=== PATIENT | male | born 1950 | race Caucasian/White ===

== ENCOUNTER 2018-11-27 17:34 | Inpatient (IN) | payer MEDICARE, OTHER ==
[~2018-11-27] VITALS: Ht 177.8 cm; Wt 96.8 kg
[~2018-11-27 17:34] MED LIST: ACET325S PR; ACET500 PO; ALFU10; ASPI325 PO; ASPI81CH PO; ASPI81EC PO; AZAT50 PO; CARV6.25 PO; CIPR500 PO; COSENTYX P150 MG/11 SQ; DOCU100 PO; Dazidox10 MG PO; FISH OIL DR 1,1 EACH PO; HALO.05TC TOP; HCTZ PO; LISHYD2012 PO; LISI5 PO; METO25 PO; MORP15ER PO; MULVITMIND PO; NITR.6SL SL; OXYC10TA19 PO; OXYC1TAB11 PO; PRED10 PO; PRED20 PO; PRED5 PO; Prilosec Otc20 MG PO; SENNA; Zantac150 MG PO; [UNRECOGNIZED DRUG - OTHER]; [UNRECOGNIZED DRUG - OTHER] PO
[2018-11-27 18:21] LABS: Source, Urine Clean Catch
[2018-11-27 18:23] LABS: BASOPHILS ABSOLUTE AUTO 0.02 K/mm3 (0.00-0.23); BASOPHILS PERCENT AUTO 0 % (0-2); EOSINOPHILS ABSOLUTE AUTO 0.04 K/mm3 (0.00-0.68); EOSINOPHILS PERCENT AUTO 0 % (0-6); Hematocrit 46.1 % (37.0-53.0); Hemoglobin 15.4 g/dL (13.5-17.5); IMMATURE GRAN ABSOLUTE AUTO 0.04 K/mm3 (0.00-0.10); IMMATURE GRAN PERCENT AUTO 0 % (0-1); LYMPHOCYTES ABSOLUTE AUTO 0.52 K/mm3 (0.84-5.20); LYMPHOCYTES PERCENT AUTO 4 % (21-46); MONOCYTES ABSOLUTE AUTO 0.87 K/mm3 (0.16-1.47); MONOCYTES PERCENT AUTO 7 % (4-13); Mean Corpuscular HGB 31.3 pg (26.0-34.0); Mean Corpuscular HGB Conc 33.4 g/dL (31.5-36.5); Mean Corpuscular Volume 94 fL (80-100); Mean Platelet Volume 10.2 fL (9.1-12.4); NEUTROPHILS ABSOLUTE AUTO 11.14 K/mm3 (1.96-9.15); NEUTROPHILS PERCENT AUTO 88 % (41-73); Platelet Count 153 K/mm3 (150-400); RDW Coefficient Variation 12.7 % (11.7-14.2); RDW Standard Deviation 43.6 fL (35.1-46.3); Red Blood Cell Count 4.92 M/mm3 (4.30-5.90); White Blood Cell Count 12.63 K/mm3 (4.00-11.30)
[2018-11-27 18:24] LABS: Bilirubin, Urine Neg (Neg); Blood, Urine 2+ (Neg); Glucose Qualitative, Urine Neg (Neg); Ketones, Urine Neg (Neg); Leukocyte Esterase, Urine 1+ (Neg); Nitrite, Urine Neg (Neg); Protein, Urine Neg (Neg); Urobilinogen, Urine NORM (Normal)
[2018-11-27 18:47] LABS: Alanine Aminotransfer (ALT/SGP 26 U/L (12-78); Albumin, Blood 3.9 g/dL (3.4-5.0); Albumin/Globulin Ratio 1.3 (0.8-1.8); Alk Phos 75 U/L (50-136); Anion Gap 5 mmol/L (6-16); Aspartate Aminotrans (AST/SGOT 23 U/L (12-37); Bilirubin, Total 0.5 mg/dL (0.1-1.0); Blood Urea Nitrogen 16 mg/dL (8-24); CO2, Blood 29 mmol/L (21-32); Calcium, Blood 8.3 mg/dL (8.5-10.1); Chloride, Blood 106 mmol/L (98-108); Globulin, Blood 3.1 g/dL (2.2-4.0); Glomerular Filtration Rate >60 (60-); Glucose, Blood 92 mg/dL (70-99); Potassium, Blood 4.4 mmol/L (3.5-5.5); Sodium, Blood 140 mmol/L (136-145); Troponin I <0.015 ng/mL (0.000-0.040)
[2018-11-27 19:05] LABS: Appearance, Urine Clear (Clear); Color, Urine Yellow (P-Yellow)
[2018-11-27 19:06] LABS: Bacteria Rare /hpf; Squamous Epithelial Cells Rare /hpf (Few); White Blood Cells, Urine 0-2 /hpf (0-5)
[2018-11-27] MEDS ORDERED: Pravachol40 MG PO (21:58)
[2018-11-27] MEDS ORDERED: TUMS500 MG PO (22:24)
[2018-11-28 04:01] LABS: BASOPHILS ABSOLUTE AUTO 0.05 K/mm3 (0.00-0.23); BASOPHILS PERCENT AUTO 0 % (0-2); EOSINOPHILS ABSOLUTE AUTO 0.16 K/mm3 (0.00-0.68); EOSINOPHILS PERCENT AUTO 1 % (0-6); Hematocrit 42.1 % (37.0-53.0); IMMATURE GRAN ABSOLUTE AUTO 0.08 K/mm3 (0.00-0.10); IMMATURE GRAN PERCENT AUTO 1 % (0-1); LYMPHOCYTES ABSOLUTE AUTO 1.76 K/mm3 (0.84-5.20); LYMPHOCYTES PERCENT AUTO 11 % (21-46); MONOCYTES ABSOLUTE AUTO 1.03 K/mm3 (0.16-1.47); MONOCYTES PERCENT AUTO 7 % (4-13); Mean Corpuscular HGB Conc 33.3 g/dL (31.5-36.5); Mean Corpuscular Volume 93 fL (80-100); NEUTROPHILS ABSOLUTE AUTO 12.65 K/mm3 (1.96-9.15); NEUTROPHILS PERCENT AUTO 81 % (41-73); Platelet Count 155 K/mm3 (150-400); RDW Coefficient Variation 12.6 % (11.7-14.2); RDW Standard Deviation 43.2 fL (35.1-46.3); Red Blood Cell Count 4.51 M/mm3 (4.30-5.90); White Blood Cell Count 15.73 K/mm3 (4.00-11.30)
[2018-11-28 04:25] LABS: Alanine Aminotransfer (ALT/SGP 21 U/L (12-78); Albumin, Blood 3.2 g/dL (3.4-5.0); Albumin/Globulin Ratio 1.1 (0.8-1.8); Alk Phos 72 U/L (50-136); Anion Gap 4 mmol/L (6-16); Aspartate Aminotrans (AST/SGOT 16 U/L (12-37); Bilirubin, Total 0.7 mg/dL (0.1-1.0); Blood Urea Nitrogen 15 mg/dL (8-24); Bun/Creatinine Ratio 15.6 (12.0-20.0); CO2, Blood 29 mmol/L (21-32); Calcium, Blood 8.3 mg/dL (8.5-10.1); Chloride, Blood 111 mmol/L (98-108); Creatinine, Blood 0.96 mg/dL (0.60-1.20); Globulin, Blood 2.8 g/dL (2.2-4.0); Glomerular Filtration Rate >60 (60-); Glucose, Blood 89 mg/dL (70-99); Sodium, Blood 144 mmol/L (136-145)
--- NOTE | 2018-11-28 04:46 | NUR ---
SHIFT SUMMARY: PATIENT ARRIVED FROM ED TO [facility] AT APPROX 2200 11/27/18 VIA GURNEY WITH AT BEDSIDE. PATIENT INDEPENDENT ABOUT ROOM, NO C/O LIGHTHEADED OR DIZZY SENSATION AND NO SOB. PATIENT SKIN C/D/I WITH HX OF PSORIASIS, NO BOWEL MOVEMENT TO USE FOR HPYLORI SAMPLE. ADMISSION COMPLETED, VSS, CALL LIGHT WITHIN REACH, BED LOW AND LOCKED, NO OTHER ISSUES NOTED.
--- NOTE | 2018-11-28 07:34 | NUR ---
RECEIVED REPORT FROM STEPHEN BOJORQUEZ, AND ASSUMED CARE OF PT.
--- NOTE | 2018-11-28 07:40 | NUR ---
DR. PARRISH AT BEDSIDE FOR EVALUATION. NEW ORDERS PROVIDED.
[2018-11-28] MEDS ORDERED: ONDA4 PO (10:11)
[2018-11-28] MEDS ORDERED: NARCAN4 MG SL (10:13)
[2018-11-28] MEDS ORDERED: RENFLEXIS100 MG IV (10:15)
[2018-11-28] MEDS ORDERED: FOLBIC RF TABL1 EACH PO (10:16)
[2018-11-28] MEDS ORDERED: MAGOXI400 PO (10:17)
[2018-11-28] MEDS ORDERED: ZINC220 PO (10:17)
[2018-11-28] MEDS ORDERED: B-122500 MC1 SL (10:21)
[2018-11-28] MEDS ORDERED: B-100 COMPLEX100 MG PO (10:21)
--- NOTE | 2018-11-28 11:07 | NUR ---
REPORT CALLED TO STEPHEN COLMENARES, WHOM WILL ASSUME CARE OF PT WHEN HE ARRIVES TO ROOM 303. PT ESCORTED TO ROOM 303 VIA WHEELCHAIR WITH ANGELO CAMEJO.
--- NOTE | 2018-11-28 11:08 | NUR ---
PT TO ROOM
[2018-11-28 13:00] LABS: Adenovirus Not Detected (NOT DETECT); Coronavirus 229E Not Detected (NOT DETECT); Coronavirus HKU1 Not Detected (NOT DETECT); Coronavirus NL63 Not Detected (NOT DETECT); Coronavirus OC43 Not Detected (NOT DETECT); Human Metapneumovirus Not Detected (NOT DETECT); Human Rhinovirus/Enterovirus Not Detected (NOT DETECT)
[2018-11-28 13:01] LABS: Bordetella pertussis Not Detected (NOT DETECT); Chlamydophila pneumoniae Not Detected (NOT DETECT); Influenza A Not Detected (NOT DETECT); Influenza A/2009-H1 Not Detected (NOT DETECT); Influenza A/H1 Not Detected (NOT DETECT); Influenza A/H3 Not Detected (NOT DETECT); Influenza B Not Detected (NOT DETECT); Mycoplasma pneumoniae Not Detected (NOT DETECT); Parainfluenza Virus 1 Not Detected (NOT DETECT); Parainfluenza Virus 2 Not Detected (NOT DETECT); Parainfluenza Virus 3 Not Detected (NOT DETECT); Parainfluenza Virus 4 Not Detected (NOT DETECT); Respiratory Syncytial Virus Not Detected (NOT DETECT)
--- NOTE | 2018-11-28 17:59 | NUR ---
SHIFT SUMMARY PT TRANSFERED FROM PCU DURING SHIFT. PT A&Ox4. CALM AND COOPERATIVE WITH CARE. PT UP IN ROOM IND. PT REPORTS CHRONIC PAIN IN NECK, LOWER AND JOINTS AND ACUTE PAIN IN JAW/TOOTH, MEDICATED PER EMAR. PT DENIES SOB AND N/V. PT HAS GOOD APPETEITE. RESP PANEL SPECIMEN SENT, NEGATIVE. PT RECEIVING IV ANTIBIOTICS. VSS. NO OTHER ACUTE CHANGES NOTED DURING SHIFT. WILL CONTINUE TO MONITOR UNTIL RPEORT GIVEN TO ONCOMING RN.
[2018-11-29 04:48] LABS: BASOPHILS ABSOLUTE AUTO 0.03 K/mm3 (0.00-0.23); BASOPHILS PERCENT AUTO 0 % (0-2); EOSINOPHILS ABSOLUTE AUTO 0.17 K/mm3 (0.00-0.68); EOSINOPHILS PERCENT AUTO 2 % (0-6); Hematocrit 39.2 % (37.0-53.0); Hemoglobin 13.1 g/dL (13.5-17.5); IMMATURE GRAN ABSOLUTE AUTO 0.01 K/mm3 (0.00-0.10); IMMATURE GRAN PERCENT AUTO 0 % (0-1); LYMPHOCYTES ABSOLUTE AUTO 1.49 K/mm3 (0.84-5.20); LYMPHOCYTES PERCENT AUTO 20 % (21-46); MONOCYTES ABSOLUTE AUTO 0.65 K/mm3 (0.16-1.47); MONOCYTES PERCENT AUTO 9 % (4-13); Mean Corpuscular HGB 31.4 pg (26.0-34.0); Mean Corpuscular HGB Conc 33.4 g/dL (31.5-36.5); Mean Corpuscular Volume 94 fL (80-100); Mean Platelet Volume 10.7 fL (9.1-12.4); NEUTROPHILS ABSOLUTE AUTO 5.16 K/mm3 (1.96-9.15); NEUTROPHILS PERCENT AUTO 69 % (41-73); Platelet Count 145 K/mm3 (150-400); RDW Coefficient Variation 12.4 % (11.7-14.2); RDW Standard Deviation 42.8 fL (35.1-46.3); Red Blood Cell Count 4.17 M/mm3 (4.30-5.90); White Blood Cell Count 7.51 K/mm3 (4.00-11.30)
[2018-11-29 05:08] LABS: Albumin, Blood 3.1 g/dL (3.4-5.0); Anion Gap 5 mmol/L (6-16); Blood Urea Nitrogen 15 mg/dL (8-24); Bun/Creatinine Ratio 15.3 (12.0-20.0); CO2, Blood 26 mmol/L (21-32); Calcium, Blood 8.8 mg/dL (8.5-10.1); Chloride, Blood 112 mmol/L (98-108); Creatinine, Blood 0.98 mg/dL (0.60-1.20); Glomerular Filtration Rate >60 (60-); Glucose, Blood 85 mg/dL (70-99); Phosphorus, Blood 4.2 mg/dL (2.5-4.9); Potassium, Blood 4.2 mmol/L (3.5-5.5); Sodium, Blood 143 mmol/L (136-145)
--- NOTE | 2018-11-29 17:34 | NUR ---
SHIFT SUMMARY PT A&Ox4 CALM AND COOPERATIVE WITH CARE. PT RESTING IN BED DURING SHIFT, UP ON SIDE OF BED FOR MEALS. PT IND IN ROOM. PT REPROTS PAIN IN NECK, BACK, AND JOINTS, MEDICATED PER EMAR. PT DENIES SOB AND N/V. GOOD APPETEITE. PT RECEIVING IV ANTIBIOTICS. PT REFUSING FLOMAX, AM METOPROLOL AND FULL 10MG OF PREDNISONE, NOTIFIED DR JUNG, NEW ORDERS TO D/C FLOMAX, CHANGE METOPROLOL TO BEDTIME AND PREDNISONE TO 5MG. ELEVATED BP NOTED, PT/SO EXPRESS CONCERNS, DR NOTIFIED, NEW ORDERS FOR HOME BP MEDICATIONS AND D/C FLUIDS. OTHER VSS. NO OTHER ACUTE CHAGNES NOTED DURING SHIFT. WILL CONTINUE TO MONITOR UNTIL REPORT GIVEN TO ONCOMING RN.
[2018-11-30 04:38] LABS: BASOPHILS ABSOLUTE AUTO 0.03 K/mm3 (0.00-0.23); BASOPHILS PERCENT AUTO 0 % (0-2); EOSINOPHILS ABSOLUTE AUTO 0.18 K/mm3 (0.00-0.68); EOSINOPHILS PERCENT AUTO 3 % (0-6); Hematocrit 40.2 % (37.0-53.0); Hemoglobin 13.5 g/dL (13.5-17.5); IMMATURE GRAN ABSOLUTE AUTO 0.02 K/mm3 (0.00-0.10); IMMATURE GRAN PERCENT AUTO 0 % (0-1); LYMPHOCYTES ABSOLUTE AUTO 1.42 K/mm3 (0.84-5.20); LYMPHOCYTES PERCENT AUTO 21 % (21-46); MONOCYTES ABSOLUTE AUTO 0.56 K/mm3 (0.16-1.47); MONOCYTES PERCENT AUTO 8 % (4-13); Mean Corpuscular HGB 30.7 pg (26.0-34.0); Mean Corpuscular HGB Conc 33.6 g/dL (31.5-36.5); Mean Platelet Volume 10.7 fL (9.1-12.4); NEUTROPHILS ABSOLUTE AUTO 4.48 K/mm3 (1.96-9.15); NEUTROPHILS PERCENT AUTO 67 % (41-73); Platelet Count 153 K/mm3 (150-400); RDW Coefficient Variation 12.4 % (11.7-14.2); RDW Standard Deviation 41.4 fL (35.1-46.3); White Blood Cell Count 6.69 K/mm3 (4.00-11.30)
[2018-11-30 04:46] LABS: Mean Corpuscular Volume 91 fL (80-100)
[2018-11-30 04:54] LABS: Albumin, Blood 3.2 g/dL (3.4-5.0); Anion Gap 7 mmol/L (6-16); Blood Urea Nitrogen 20 mg/dL (8-24); Bun/Creatinine Ratio 20.1 (12.0-20.0); CO2, Blood 25 mmol/L (21-32); Calcium, Blood 8.4 mg/dL (8.5-10.1); Chloride, Blood 110 mmol/L (98-108); Creatinine, Blood 0.99 mg/dL (0.60-1.20); Glomerular Filtration Rate >60 (60-); Glucose, Blood 82 mg/dL (70-99); Phosphorus, Blood 4.7 mg/dL (2.5-4.9); Potassium, Blood 3.9 mmol/L (3.5-5.5); Sodium, Blood 142 mmol/L (136-145)
[2018-11-30] MEDS ORDERED: Augmentin 875-1 EACH PO (11:22)
[2018-11-30] MEDS ORDERED: Florastor250 MG PO (11:22)
--- NOTE | 2018-11-30 11:56 | NUR ---
PATIENT DISCHARGED AT 11:56. PATIENT AMBULATED OUT OF THE HOSPITAL WITH HIS .
== END 2018-11-30 11:51 | disposition home or self-care (01) | DRG 872 ==
LOC: ER 17:34 → PCU 17:35 → MEDS 17:35 → PCU 21:59 → MEDS 11-28 11:08 → PCU 11-28 15:34 → MEDS 11-28 15:34 → PCU 11-28 15:34 → MEDS 11-28 21:48
PROVIDERS: Emergency Medicine; Family Medicine; Nurse Practitioner Acute Care; Physician Assistant; ADMIT Internal Medicine
DX: A41.9 Sepsis, unspecified organism (principal); R65.20 Severe sepsis without septic shock; M06.9 Rheumatoid arthritis, unspecified; I25.10 Atherosclerotic heart disease of native coronary artery without angina pectoris; K21.9 Gastro-esophageal reflux disease without esophagitis; K02.9 Dental caries, unspecified
CPT/HCPCS: 36415; 71046; 80053; 80069; 81001; 82550; 83605; 84145; 84484; 85025; 85651; 86140; 87040; 87086; 87338; 87486; 87581; 87633; 87798; 93005; 93010; 96360; 96361; 99284-25; G0378; J1650; J2405; J2543; J3010; J7030; J7120; J7512